=== PATIENT | male | born 1970 | race Caucasian/White ===

== ENCOUNTER 2017-06-06 07:37 | Emergency (ER) | payer OTHER ==
[~2017-06-06] VITALS: Ht 172.7 cm; Wt 75.0 kg
[~2017-06-06 07:37] MED LIST: ASPIRIN 81M81 MG/TA2 PO; FISH OIL CONCEN1 SG2 PO; LIPITOR 10MG10 MG PO; VITAMIN D32000 IU PO; ZOCOR 10MG10 MG PO
[2017-06-06 07:40] VITALS: TEMP 98.9
[2017-06-06] MEDS ORDERED: EYE DROP ADVANC15 ML OP (07:56)
[2017-06-06 08:22] VITALS: BP 152/94; PULSE 84
== END 2017-06-06 08:26 | disposition home or self-care (01) ==
LOC: COL.ER 07:37
DX: S01.81XA Laceration without foreign body of other part of head, initial encounter (principal); S01.01XA Laceration without foreign body of scalp, initial encounter; I10 Essential (primary) hypertension; F17.210 Nicotine dependence, cigarettes, uncomplicated; Z79.82 Long term (current) use of aspirin; W25.XXXA Contact with sharp glass, initial encounter; Y92.89 Other specified places as the place of occurrence of the external cause; Y99.0 Civilian activity done for income or pay